=== PATIENT | male | born 1990 | race African-American/Black ===

== ENCOUNTER 2024-01-05 14:46 | Emergency (ER) | payer MEDICAID, OTHER, SELFPAY ==
[2024-01-05 15:00] VITALS: BP 115/81; PULSE 100; RESP 19; TEMP 37.1; O2SAT 98; BMI 33.5
[2024-01-05 16:06] LABS: MANUAL DIFF FLAG NO
[2024-01-05 16:08] LABS: Basophils Absolute Auto 0.1 X10*3/uL (0.0-0.2); Basophils Percent Auto 0.7 % (0-2); Eosinophils Absolute Auto 0.1 X10*3/uL (0.0-0.4); Eosinophils Percent Auto 1.5 % (0-4); Hemoglobin 15.8 g/dl (14.0-18.0); Imm Gran Abs Auto 0.05 X10*3/uL (0.00-0.03); Imm Gran Pct Auto 0.7 % (0.0-0.4); Lymphocytes Absolute Auto 2.4 X10*3/uL (1.2-4.9); Lymphocytes Percent Auto 35.1 % (20-40); Mean Corpuscular HGB Conc 35.9 g/dl (31.0-36.0); Mean Corpuscular Hemoglobin 30.3 pg (27.0-33.0); Mean Corpuscular Volume 84.3 fL (80.0-98.0); Mean Platelet Volume 10.7 fL (9.4-12.4); Monocytes Absolute Auto 0.5 X10*3/uL (0.1-1.2); Neutrophils Absolute Auto 3.7 x10*3/uL (2.0-8.3); Platelet Count 239 X10*3/uL (160-400); Red Blood Count 5.22 X10*6/uL (4.60-5.80); Red Cell Distribution Width 11.9 % (11.0-16.0); White Blood Count 6.8 X10*3/uL (4.8-10.8)
[2024-01-05 16:33] LABS: Beta-Hydroxybutyrate 0.15 mmol/L (0.02-0.27)
[2024-01-05 16:46] LABS: Alanine Aminotransferase 131 U/L (0-40); Albumin Level 4.9 g/dL (3.5-5.0); Alkaline Phosphatase 150 U/L (39-117); Anion Gap 13 (12-20); Aspartate Amino Transferase 46 U/L (5-37); Bilirubin Total 0.4 mg/dL (0.0-1.0); Blood Urea Nitrogen 10 mg/dL (9-16); Calcium 10.3 mg/dL (8.4-10.2); Carbon Dioxide 27 mmol/L (22-29); Chloride 101 mmol/L (96-108); Creatinine Clr Calc Pharmacy 151.4; Estimated Glomerular Filt Rate > 60; Glucose Random 460 mg/dL (60-115); Lipase 30 U/L (8-78); Magnesium 2.1 mg/dL (1.6-2.6); Potassium 4.2 mmol/L (3.3-5.1); Sodium 137 mmol/L (135-145); Total Protein 8.7 g/dL (6.5-8.0)
--- NOTE | 2024-01-05 19:50 | ED_ITS ---
HPI - General Adult General Chief complaint: General Medical Stated complaint: Not feeling well - diabetic Time Seen by Provider: 01/05/24 19:49 Source: patient Mode of arrival: ambulatory Limitations: no limitations History of Present Illness ED Provider: Carlos Mckenzie PA-C HPI narrative: 33-year-old type 2 diabetic presents to the ER for evaluation of polyuria & polydipsia. Patient recently moved to the [facility] from the [place] a few months ago. He ran out of his diabetes medication 1 week ago. In the [place] he could buy them [id number]. He does not have a doctor here to prescribe them. He is on metformin extended release 850 mg combined with glipizide 2.5 mg. He checked his sugar yesterday and it was 200 range. Denies any fevers, chills, nausea, vomiting, abdominal pain, chest pain. MD complaint: High sugar, polyuria polydipsia Onset (ago): day(s) Relieving factors: none Exacerbating factors: none Associated symptoms: malaise Treatments prior to arrival: none Related Data Previous Rx's ?Medication ?Instructions ?Recorded glipizide 2.5 mg tablet 2.5 mg PO DAILY #30 tabs 01/05/24 metformin 500 mg tablet 500 mg PO BID #60 tabs 01/05/24 Allergies Allergy/AdvReac Type Severity Reaction Status Date / Time No Known Allergies Allergy Verified 01/05/24 15:03 Review of Systems 2 Review of Systems: Yes all other systems are reviewed and are negative PMFSH Social History Social History Advance Directives: No Advance Directives Information Provided: No Physical Exam ED Vital Signs: Vital Signs - 24 hr 01/05/24 15:00 01/05/24 20:07 01/05/24 21:42 Temperature 98.8 F 98.5 F 98.0 F Pulse Rate 100 89 75 Respiratory Rate 19 16 17 Blood Pressure 115/81 136/88 110/82 Pulse Oximetry 98 97 99 Oxygen Delivery Method Room Air Room Air Room Air 01/05/24 22:43 01/05/24 22:51 Temperature 98.1 F 98.1 F Pulse Rate 85 85 Respiratory Rate 16 16 Blood Pressure 117/82 117/82 Pulse Oximetry 98 98 Oxygen Delivery Method Room Air Room Air BMI result Body Mass Index 33.5 Appearance: Alert. Oriented X3. No acute distress. Head: normocephalic, atraumatic. Eyes: Pupils equal, round and reactive to light. ENT: Pharynx normal. No tonsillar swelling or exudate. Neck: Normal inspection. Neck supple. CVS: Normal heart rate and rhythm. Pulses normal. Respiratory: No respiratory distress. Breath sounds normal. Abdomen: Soft and nontender. +BS x4 Skin: Skin warm and dry. Normal skin color. Normal skin turgor. No rashes. Extremities: No lower extremity edema. No joint swelling. Neuro/psych: Oriented X 3. No motor deficit. No sensory deficit. CN II-XII intact. Normal speech and cognition. Medications Administered Discontinued Medications Generic Name Dose Route Start Last Admin Trade Name Freq PRN Reason Stop Dose Admin Glipizide 2.5 mg 01/05/24 20:54 01/05/24 21:51 Glipizide 5 Mg Tablet PO 01/05/24 20:55 2.5 mg ONCE ONE Administration Sodium Chloride 1,000 mls @ 999 mls/hr 01/05/24 20:00 01/05/24 21:37 Ns IV 01/05/24 21:00 Infused .Q1H1M RICK Infusion Sodium Chloride 1,000 mls @ 999 mls/hr 01/05/24 21:45 01/05/24 21:37 Ns IVCONT 01/05/24 22:45 999 mls/hr .Q1H1M RICK Administration Metformin HCl 850 mg 01/05/24 20:54 01/05/24 21:51 Metformin Hcl 850 Mg Tablet PO 01/05/24 20:55 850 mg ONCE ONE Administration Medical Decision Making Medical Decision Making MDM Narrative: 33-year-old type 2 diabetic presenting to the ER for evaluation after he ran out of his oral diabetic medications from the [place], has no PCP here. Lab work today shows normal CBC. He has normal renal function without any anion gap acidosis. Glucose was 460. LFTs were elevated however he has no right upper quadrant tenderness, his abdomen is benign. No nausea, vomiting, diarrhea. Repeat point of care once in the main emergency department was 396. Patient was given IV fluids with minimal improvement. 2nd L was ordered as well as his oral agents that he is on at home. Glucose improved to low 300s Stable for discharge home with prescriptions for his oral agents. Given referrals to local primary care's and advised to call his insurance company for PCPs were accepting new patients. Stable for discharge home with outpatient follow-up. Differential Diagnosis Differential Diagnoses: The differential diagnosis associated with the presentation includes Poorly-controlled diabetes, medication noncompliance, no evidence of DKA or HHS Lab Data MDM Lab Attestation statement: I reviewed the patient's lab results. Hyperglycemia without anion gap 01/05/24 16:01 01/05/24 16:01 Labs: Lab Results 01/05/24 01/05/24 01/05/24 Range/Units 16:01 20:06 20:15 WBC 6.8 (4.8-10.8) X10*3/uL RBC 5.22 (4.60-5.80) X10*6/uL Hgb 15.8 (14.0-18.0) g/dl Hct 44.0 (42.0-52.0) % MCV 84.3 (80.0-98.0) fL MCH 30.3 (27.0-33.0) pg MCHC 35.9 (31.0-36.0) g/dl RDW 11.9 (11.0-16.0) % Plt Count 239 (160-400) X10*3/uL MPV 10.7 (9.4-12.4) fL Immature Gran % (Auto) 0.7 H (0.0-0.4) % Neut % (Auto) 55.0 (45-73) % Lymph % (Auto) 35.1 (20-40) % [place] % (Auto) 7.0 (2-11) % Eos % (Auto) 1.5 (0-4) % Baso % (Auto) 0.7 (0-2) % Lymph # (Auto) 2.4 (1.2-4.9) X10*3/uL [place] # (Auto) 0.5 (0.1-1.2) X10*3/uL Eos # (Auto) 0.1 (0.0-0.4) X10*3/uL Baso # (Auto) 0.1 (0.0-0.2) X10*3/uL Abs Immat Gran (auto) 0.05 H (0.00-0.03) X10*3/uL Absolute Neuts (auto) 3.7 (2.0-8.3) x10*3/uL Absolute Nucleated RBC 0.000 (0.0-0.012) X10*3/uL Nucleated RBC % (auto) 0.0 (0.0-0.2) /100WBC Sodium 137 (135-145) mmol/L Potassium 4.2 (3.3-5.1) mmol/L Chloride 101 (96-108) mmol/L Carbon Dioxide 27 (22-29) mmol/L Anion Gap 13 (12-20) BUN 10 (9-16) mg/dL Creatinine 1.01 (0.5-1.4) mg/dL Estim Creat Clear Calc 151.4 Estimated GFR > 60 POC Glucose 396 H* (60-115) mg/dL Random Glucose 460 H* (60-115) mg/dL Calcium 10.3 H (8.4-10.2) mg/dL Magnesium 2.1 (1.6-2.6) mg/dL Total Bilirubin 0.4 (0.0-1.0) mg/dL AST 46 H (5-37) U/L ALT 131 H (0-40) U/L Alkaline Phosphatase 150 H (39-117) U/L Total Protein 8.7 H (6.5-8.0) g/dL Albumin 4.9 (3.5-5.0) g/dL Lipase 30 (8-78) U/L Beta-Hydroxybutyrate 0.15 (0.02-0.27) mmol/L Urine Color Yellow Urine Appearance Clear Urine pH 5.5 (5.0-9.0) Ur Specific [place] >= 1.030 H (1.005-1.025) Urine Protein Negative (Neg-Trace) mg/dL Urine Glucose (UA) >=1000 H (Negative) mg/dL Urine Ketones Negative (Negative) mg/dL Urine Blood Negative (Negative) Urine Nitrite Negative (Negative) Ur Leukocyte Esterase Negative (Negative) Urine RBC 0-2 (0-2) /HPF Urine WBC 0-5 (0-5) /HPF Ur Squamous Epith Cells 0-2 (0-2) /HPF Urine Bacteria None Seen (None Seen) Hyaline Casts 0-2 (0-2) /LPF 01/05/24 01/05/24 Range/Units 21:33 22:39 WBC (4.8-10.8) X10*3/uL RBC (4.60-5.80) X10*6/uL Hgb (14.0-18.0) g/dl Hct (42.0-52.0) % MCV (80.0-98.0) fL MCH (27.0-33.0) pg MCHC (31.0-36.0) g/dl RDW (11.0-16.0) % Plt Count (160-400) X10*3/uL MPV (9.4-12.4) fL Immature Gran % (Auto) (0.0-0.4) % Neut % (Auto) (45-73) % Lymph % (Auto) (20-40) % [place] % (Auto) (2-11) % Eos % (Auto) (0-4) % Baso % (Auto) (0-2) % Lymph # (Auto) (1.2-4.9) X10*3/uL [place] # (Auto) (0.1-1.2) X10*3/uL Eos # (Auto) (0.0-0.4) X10*3/uL Baso # (Auto) (0.0-0.2) X10*3/uL Abs Immat Gran (auto) (0.00-0.03) X10*3/uL Absolute Neuts (auto) (2.0-8.3) x10*3/uL Absolute Nucleated RBC (0.0-0.012) X10*3/uL Nucleated RBC % (auto) (0.0-0.2) /100WBC Sodium (135-145) mmol/L Potassium (3.3-5.1) mmol/L Chloride (96-108) mmol/L Carbon Dioxide (22-29) mmol/L Anion Gap (12-20) BUN (9-16) mg/dL Creatinine (0.5-1.4) mg/dL Estim Creat Clear Calc Estimated GFR POC Glucose 394 H* 333 H (60-115) mg/dL Random Glucose (60-115) mg/dL Calcium (8.4-10.2) mg/dL Magnesium (1.6-2.6) mg/dL Total Bilirubin (0.0-1.0) mg/dL AST (5-37) U/L ALT (0-40) U/L Alkaline Phosphatase (39-117) U/L Total Protein (6.5-8.0) g/dL Albumin (3.5-5.0) g/dL Lipase (8-78) U/L Beta-Hydroxybutyrate (0.02-0.27) mmol/L Urine Color Urine Appearance Urine pH (5.0-9.0) Ur Specific [place] (1.005-1.025) Urine Protein (Neg-Trace) mg/dL Urine Glucose (UA) (Negative) mg/dL Urine Ketones (Negative) mg/dL Urine Blood (Negative) Urine Nitrite (Negative) Ur Leukocyte Esterase (Negative) Urine RBC (0-2) /HPF Urine WBC (0-5) /HPF Ur Squamous Epith Cells (0-2) /HPF Urine Bacteria (None Seen) Hyaline Casts (0-2) /LPF Independent Historian Clinical information obtained from an independent historian. History obtained from or confirmed by: Spouse Tests considered The following testing was considered but not selected: Consider right upper quadrant ultrasound to investigate transaminitis however this was not clinically warranted as patient is not having any pain or tenderness on exam Prescription Management I considered prescription management with: Other (Sulfonylurea) Chronic Conditions Patient?s care impacted by: Diabetes Social Determinants Patient?s care significantly limited by Social Determinants of Health including: Other Social Determinant of Health ([place] and [place]CP) Discharge Plan Discharge Clinical Impression: Diabetes mellitus with hyperglycemia Qualifiers: Diabetes mellitus type: type 2 Diabetes mellitus exterminator insulin use: without prison use Qualified Code(s): E11.65 - Type 2 diabetes mellitus with hyperglycemia Patient Disposition: Home, Self-Care Instructions: Diabetic Hyperglycemia (ED) Additional Instructions: Take the prescribed medications as directed. Monitor your sugars before meals and at bedtime. Recommend following up with primary care as soon as possible for management of your diabetes. If you have a hard time getting a primary care doctor, you can try calling her insurance to see who is in your network and who is accepting new patients If you develop new or worsening symptoms call 911 or come back to the ER for further evaluation. Prescriptions: New metformin 500 mg tablet 500 mg PO BID Qty: 60 1RF glipizide 2.5 mg tablet 2.5 mg PO DAILY Qty: 30 1RF Referrals: [facility] [Provider Group] [facility] [place] [facility] [Provider Group] [facility] [place] [facility] [Provider Group] Interventions: ED Discharge Assessment Last Done: 01/05/24 22:51 Discharge Date/Time: 01/05/24 22:51 Print Language: Sudanese
[2024-01-05 20:07] VITALS: BP 136/88; PULSE 89; RESP 16; TEMP 36.9; O2SAT 97
[2024-01-05] MEDS: 0.9 % Sodium Chloride 1,000 ML 999 ML IV (20:13)
[2024-01-05 20:19] LABS: Glucose, Whole Blood 396 mg/dL (60-115)
--- NOTE | 2024-01-05 20:30 | PC.NURSE ---
a&ox4. vss and up to date. most recent POC 396mg/dL. provider notified/aware. pt presents to ED after running out of prescribed insulin x 5 days. pt has been taking metformin since running out. pt verbalizing feeling sick and unwell as well as having the 3 Ps. skin warm/dry. no sob/wob noted. respirations even/unlabored. plan of care ongoing.
[2024-01-05 20:36] LABS: Appearance Urine Clear; Color Urine Yellow; Glucose Urine UA >=1000 mg/dL (Negative); Leukocyte Esterase Urine Negative (Negative); Nitrite Urine Negative (Negative); PH 5.5 (5.0-9.0); Specific Gravity - Urine >= 1.030 (1.005-1.025); UMIC TRIGGER UACC YES; Urine Blood Negative (Negative); Urine Ketones Negative (Negative); Urine Protein Negative (Neg-Trace)
[2024-01-05 20:41] LABS: Bacteria Urine None Seen (None Seen); Hyaline Casts Urine 0-2 /LPF (0-2); RBC Urine 0-2 /HPF (0-2); Squamous Epithelial Cell Urine 0-2 /HPF (0-2); WBC Urine 0-5 /HPF (0-5)
--- NOTE | 2024-01-05 21:09 | PC.NURSE ---
pharmacy called d/t missing medication. will administer when able.
[2024-01-05] MEDS: 0.9 % Sodium Chloride 1,000 ML 999 ML IVCONT (21:37)
--- NOTE | 2024-01-05 21:37 | PC.NURSE ---
repeat POC obtained post 1L IVF - 394mg/dL. PA notified/aware. another liter fluid infusing per provider order at this time. will call pharmacy again to obtain medication.
[2024-01-05 21:38] LABS: Glucose, Whole Blood 394 mg/dL (60-115)
[2024-01-05 21:42] VITALS: BP 110/82; PULSE 75; RESP 17; TEMP 36.7; O2SAT 99
[2024-01-05] MEDS: glipiZIDE 5 MG TABLET 2.5 MG PO (21:51)
[2024-01-05] MEDS: metFORMIN HCl 850 MG TABLET PO (21:51)
--- NOTE | 2024-01-05 21:52 | PC.NURSE ---
medication delivered from pharmacy/administered per provider order.
[2024-01-05 22:43] VITALS: BP 117/82; PULSE 85; RESP 16; TEMP 36.7; O2SAT 98
--- NOTE | 2024-01-05 22:50 | PC.NURSE ---
repeat POC obtained post 2nd liter of IVF. provider notified/aware of results. ok for d/c.
[2024-01-05 22:51] VITALS: BP 117/82; PULSE 85; RESP 16; TEMP 36.7; O2SAT 98
[2024-01-05 22:59] LABS: Glucose, Whole Blood 333 mg/dL (60-115)
== END 2024-01-05 22:51 | disposition home or self-care (01) ==
PROVIDERS: Physician Assistant Medical; Emergency Provider Internal Medicine
DX: E11.65 Type 2 diabetes mellitus with hyperglycemia (principal); R53.81 Other malaise; R11.0 Nausea; Z79.899 Other long term (current) drug therapy
CPT/HCPCS: 36415; 80053; 81001; 82010; 82947; 83690; 83735; 85025; 96360; 99284